=== PATIENT | female | born 1980 | race Caucasian/White ===

== ENCOUNTER 2016-11-09 06:08 | Day surgery (SDC) | payer OTHER ==
[~2016-11-09] VITALS: Ht 157.5 cm; Wt 75.2 kg
[~2016-11-09 06:08] MED LIST: BUPR300T36 PO; CHOL100062 PO; FAMO20TA18 PO; FER325 PO; LEVO100T87 PO; LORA10TA3 PO; SERT50TA6 PO
[2016-11-09] MEDS ORDERED: OMEP40CA6 PO (07:10)
[2016-11-09] MEDS ORDERED: CARAS PO (07:10)
[2016-11-09 07:30] VITALS: Ht 157.5 cm; Wt 75.2 kg
[2016-11-09] MEDS ORDERED: FENTAnyl 50 MCG/ML VIAL ONE (07:35)
[2016-11-09] MEDS ORDERED: PROPOFOL 20 ML ONE (07:35)
[2016-11-09 07:53] VITALS: BP 143/70; PULSE 58; RESP 12
[2016-11-09 08:30] VITALS: BP 134/70; PULSE 55; RESP 19
--- NOTE | 2016-11-09 12:51 | GILP ---
DATE OF PROCEDURE: 11/09/2016 NAME OF PROCEDURE: Esophagogastroduodenoscopy and biopsy. SURGEON: Estuardo Huynh MD PREOPERATIVE DIAGNOSIS: Abdominal pain. POSTOPERATIVE DIAGNOSES: 1. Gastroesophageal reflux disease. 2. Status post partial gastrectomy. 3. Small ulcer in the gastric pouch. 4. Gastritis. 5. Gastric mucosal biopsies were taken for Helicobacter pylori test. INDICATION FOR THE PROCEDURE: Ms. Maddy Ocampo is a 36-year-old female patient who had upper abdominal pain, not responding to therapy. The patient was scheduled for endoscopic examination for further evaluation. DESCRIPTION OF PROCEDURE: Under the influence of anesthesia, the gastroscope was carefully introduc ed into the esophagus and under direct vision, it was advanced to the stomach and into the small bow el loops. FINDINGS: ESOPHAGUS: The patient had gastroesophageal reflux disease. STOMACH: The patient had a partial gastrectomy with a small gastric pouch. She was noted to have g astritis. Gastric mucosal biopsies were taken for H. pylori test. The patient also had a small gas tric ulcer. The small bowel loops were normal. She tolerated the procedure very well and there was no complication from the procedure. At the end of the procedure, she was awake with stable vital signs and she was discharged home to the care of [facility]. IMPRESSION: 1. Gastroesophageal reflux disease. 2. Status post partial gastrectomy. 3. Gastritis. 4. Gastric mucosal biopsies were taken for Helicobacter pylori test. 5. Small ulcer in the gastric pouch. 6. Normal small bowel loops. PLAN: 1. Continue omeprazole and Carafate. 2. Await H. pylori test report. 3. Abdominal ultrasound for further evaluation of abdominal pain. Dictated By: ESTUARDO HUYNH MD GD/PAIGE Conf#: [id number] DID#: [id number] CC: ESTUARDO HUYNH MD;*EndCC*
--- NOTE | 2016-11-09 16:45 | CONS ---
DATE OF ADMISSION: 11/09/2016 DATE OF CONSULTATION: TYPE OF CONSULTATION: Preoperative gastroenterology. I thank you very much for this kind referral. HISTORY OF PRESENT ILLNESS: Ms. Maddy Ocampo is a 36-year-old female patient who has been ref erred to me for further evaluation of upper abdominal pain associated with nausea. The patient has been taking omeprazole and Zantac without relief. She was also prescribed Carafate which she is not taking. The patient had upper endoscopy a few months ago, and she was noted to have gastric ulcers . She is not taking any nonsteroidal anti-inflammatory agents. Her appetite has been good, and she is not losing any weight. The patient gives history of constipation. There is no past history of colon neoplasm or inflammatory bowel disease. There is no history of gallstones. She does not have any fever, chills, or jaundice. There is no history of liver disease. The patient had abdominal C T scan, and it was negative. She is status post gastric bypass surgery. She is not a hypertensive or diabetic. She does not have any heart disease or lung problem. There is no history of kidney di sease. She has a history of depression. She has hypothyroidism. SOCIAL HISTORY: She is a smoker. She denies alcohol abuse. FAMILY HISTORY: Negative for gastrointestinal tract neoplasm. ALLERGIES: SHE STATES SHE IS ALLERGIC TO AMOXICILLIN. MEDICATIONS: 1. Omeprazole. 2. Zantac. 3. Zoloft. 4. Wellbutrin. 5. Levothyroxine. PHYSICAL EXAMINATION: VITAL SIGNS: She is 5 feet 2 inches tall, and she weighs 163 pounds. HEART: Examination of the heart reveals normal first and second heart sounds. LUNGS: Clear. ABDOMEN: Soft without any distention. Liver and spleen are not palpable. The patient has epigastr ic tenderness. There is no rebound tenderness. Normal bowel sounds are heard. CENTRAL NERVOUS SYSTEM: Does not reveal any focal neurological deficit. IMPRESSION: 1. Upper abdominal pain, not responding to therapy with omeprazole and Zantac. 2. History of gastric ulcer. 3. The patient had abdominal CT scan, and it was normal. 4. Status post gastric bypass surgery. 5. Hypothyroidism. 6. Depression. 7. The patient is a smoker. 8. HISTORY OF ALLERGY TO AMOXICILLIN. PLAN: 1. Continue omeprazole and Zantac. 2. Advised Carafate 1 g p.o. t.i.d. a.c. 3. Abdominal ultrasound to rule out gallstones. 4. Endoscopic examination for further evaluation. 5. Because of the history of depression and anti-depression drugs she has been taking which make he r resistant to narcotics, she will need monitored anesthesia care for the procedure. The procedure and possible complications are well explained to the patient. She understands and con sents to the procedure. I thank you once again. With warmest personal regards, Dictated By: ESTUARDO STATON/PAIGE Conf#: [id number] DID#: [id number]
== END 2016-11-09 08:53 | disposition home or self-care (01) ==
LOC: GIL 06:08
PROVIDERS: ATTEND Internal Medicine Gastroenterology
DX: K21.9 Gastro-esophageal reflux disease without esophagitis (principal); K29.70 Gastritis, unspecified, without bleeding; K25.9 Gastric ulcer, unspecified as acute or chronic, without hemorrhage or perforation; E03.9 Hypothyroidism, unspecified; J45.909 Unspecified asthma, uncomplicated
CPT/HCPCS: 43239; 87081; J3010; Z7610